=== PATIENT | female | born 1955 | race Asian ===

== ENCOUNTER 2018-08-02 03:53 | Outpatient (CLI) | payer OTHER, MEDICAID | END 2018-08-02 03:54 | disposition critical access hospital (66) | LOC: EMS 03:53 | PROVIDERS: ATTEND Surgery | DX: R07.9 Chest pain, unspecified (principal); R06.02 Shortness of breath; R11.0 Nausea; R68.83 Chills (without fever) ==

== ENCOUNTER 2018-08-02 04:11 | Emergency (ER) | payer OTHER, MEDICAID ==
--- NOTE | 2018-08-02 04:23 | ED Physician Documentation ---
PD HPI CHEST PAIN - Stated complaint Stated Complaint: CP,SOA - History obtained from History obtained from: Patient, EMS - History of Present Illness Timing - onset: How many hours ago (1) Timing - onset during: Rest (was in bed trying to sleep) Timing - details: Gradual onset Pain level now: 8 Quality: Pain Location: Left chest Radiation: Other (does not radiate) Improved by: Rest Worsened by: Inspiration, Other (coughing) Associated symptoms: No: Shortness of air, Diaphoresis Similar symptoms before: Other (recently diagnosed with pneumonia, treated with antibiotic (does not know which one, but completed 1 week course of QD antibiotic), and prednisone taper (still taking). She has continued to cough since the diagnosis but left chest pain is new and the chief complaint tonight) - Additional information Additional information: 101.8 temperature measured by medics [employer]. Patient and family were not aware of fevers at home. Review of Systems Constitutional: reports: Fever (per medic's measurement) Cardiac: reports: Chest pain / pressure. denies: Palpitations, Pedal edema, Calf pain Respiratory: reports: Cough. denies: Dyspnea, Hemoptysis, Wheezing GI: reports: Reviewed and negative Skin: denies: Rash Musculoskeletal: denies: Extremity swelling PD PAST MEDICAL HISTORY - Past Medical History Past Medical History: Yes Cardiovascular: Hypertension, High cholesterol Respiratory: Pneumonia Endocrine/Autoimmune: HyPOthyroidism - Present Medications Home Medications: Ambulatory Orders Medication Instructions Recorded Confirmed Atorvastatin [Lipitor] 40 mg PO QPM 08/02/18 Azithromycin [Zithromax] 250 mg PO DAILY #4 tablet 08/02/18 Benzonatate 200 mg PO TID PRN 08/02/18 Hydrocodone/Acetaminophen 0.5 - 1 each PO Q6HR PRN #14 tablet 08/02/18 [Hydrocodone-Acetamin 5-325 mg] Levothyroxine [Synthroid] 88 mcg PO QDAC 08/02/18 Lisinopril 5 mg PO DAILY 08/02/18 Prednisone 10 mg PO DAILY 08/02/18 hydroCHLOROthiazide 25 mg PO DAILY 08/02/18 [Hydrochlorothiazide] - Allergies Allergies/Adverse Reactions: Allergies Allergy/AdvReac Type Severity Reaction Status Date / Time Penicillins AdvReac Hives Verified 08/02/18 04:22 - Living Situation Living Situation: reports: With family Living Arrangement: reports: At home PD ED PE NORMAL - Vitals Vital signs reviewed: Yes - General General: Alert and oriented X 3, No acute distress, Well developed/nourished - Neck Neck: Supple, no meningeal sign - Cardiac Cardiac: RRR, No murmur - Respiratory Respiratory: No respiratory distress, Other (left mid/lower lung field rhonchi) - Abdomen Abdomen: Soft, Non tender - Back Back: No CVA TTP - Derm Derm: Normal color, Warm and dry, No rash - Extremities Extremities: No edema Results - Vitals Vitals: Vital Signs - 24 hr 08/02/18 08/02/18 08/02/18 04:13 04:48 06:19 Temperature 37.2 C Heart Rate 97 93 85 Respiratory 17 19 18 Rate Blood Pressure 126/72 131/74 H 96/64 O2 Saturation 98 97 98 08/02/18 06:28 Temperature 36.7 C Heart Rate Respiratory Rate Blood Pressure O2 Saturation Oxygen O2 Source Room air - EKG (time done) No standard instances Rate: Rate (enter#) (97) Rhythm: NSR, LAE, BOYD Grayling: Normal Intervals: Normal NM QRS: Normal Ischemia: Normal ST segments - Labs Labs: Laboratory Tests 08/02/18 08/02/18 08/02/18 04:15 04:15 04:15 WBC 15.8 H RBC 4.29 Hgb 13.8 Hct 41.7 MCV 97.1 MCH 32.1 H MCHC 33.1 RDW 13.4 Plt Count 167 MPV 7.2 L Neut # (Auto) 11.8 H Lymph # (Auto) 2.7 [place] # (Auto) 1.2 H Eos # (Auto) 0.0 Baso # (Auto) 0.1 Absolute Nucleated RBC 0.00 Nucleated RBC % 0.0 D-Dimer Sodium 133 L Potassium 3.3 L Chloride 97 L Carbon Dioxide 26 Anion Gap 10.0 BUN 21 H Creatinine 0.8 Estimated GFR (MDRD) 73 L Glucose 166 H Lactic Acid Calcium 8.4 L Total Bilirubin 0.5 AST 17 ALT 19 Alkaline Phosphatase 65 Total Creatine Kinase 40 CK-MB (CK-2) 2.0 Troponin I < 0.04 Total Protein 6.6 L Albumin 3.5 Globulin 3.1 Albumin/Globulin Ratio 1.1 Lipase 38 08/02/18 08/02/18 04:15 05:00 WBC RBC Hgb Hct MCV MCH MCHC RDW Plt Count MPV Neut # (Auto) Lymph # (Auto) [place] # (Auto) Eos # (Auto) Baso # (Auto) Absolute Nucleated RBC Nucleated RBC % D-Dimer 430.0 H Sodium Potassium Chloride Carbon Dioxide Anion Gap BUN Creatinine Estimated GFR (MDRD) Glucose Lactic Acid 1.0 Calcium Total Bilirubin AST ALT Alkaline Phosphatase Total Creatine Kinase CK-MB (CK-2) Troponin I Total Protein Albumin Globulin Albumin/Globulin Ratio Lipase - Rads (name of study) chest xray Radiology: Prelim report reviewed, See rad report PD MEDICAL DECISION MAKING - ED course Complexity details: reviewed results, re-evaluated patient, considered differential, d/w patient, d/w family Departure - Departure Disposition: 01 Home, Self Care Clinical Impression: Pneumonia Qualifiers: Pneumonia type: due to unspecified organism Laterality: left Lung location: lower lobe of lung Qualified Code(s): J18.1 - Lobar pneumonia, unspecified organism Condition: Good Instructions: ED Pneumonia Adult Prescriptions: Hydrocodone/Acetaminophen [Hydrocodone-Acetamin 5-325 mg] 0.5 - 1 each PO Q6HR PRN #14 tablet PRN Reason: Pain Azithromycin [Zithromax] 250 mg PO DAILY #4 tablet Comments: Follow up with your primary care provider in 2-3 days Discharge Date/Time: 08/02/18 06:28
[2018-08-02] MEDS ORDERED: KETOROLAC 30 MG/ML VIAL IVP STA (04:26)
[2018-08-02 04:44] LABS: ALBUMIN 3.5 g/dL (3.2-5.5); ALBUMIN/GLOBULIN RATIO 1.1 (1.0-2.2); BILIRUBIN,TOTAL 0.5 mg/dL (0.2-1.0); CALCIUM 8.4 mg/dL (8.5-10.3); CREATININE 0.8 mg/dL (0.4-1.0); TOTAL PROTEIN 6.6 g/dL (6.7-8.2)
[2018-08-02 04:50] LABS: TROPONIN I < 0.04 ng/mL (<0.49)
[2018-08-02 04:54] LABS: BASOPHILS # (AUTO) 0.1 10^3/uL (0.0-0.1); BASOPHILS % (AUTO) 0.3 %; EOSINOPHILS % (AUTO) 0.2 %; HGB - HEMOGLOBIN 13.8 g/dL (12.0-16.0); LYMPHOCYTES # (AUTO) 2.7 10^3/uL (1.5-3.5); LYMPHOCYTES % (AUTO) 17.1 %; MEAN CORPUSCULAR HEMOGLOBIN 32.1 pg (27.0-31.0); MEAN CORPUSCULAR HGB CONC 33.1 g/dL (32.0-36.0); MEAN CORPUSCULAR VOLUME 97.1 fL (81.0-99.0); MEAN PLATELET VOLUME 7.2 fL (7.9-10.8); MONOCYTES # (AUTO) 1.2 10^3/uL (0.0-1.0); MONOCYTES % (AUTO) 7.4 %; NEUTROPHILS # (AUTO) 11.8 10^3/uL (1.5-6.6); PLT - PLATELET COUNT 167 10^3/uL (130-450); RED BLOOD COUNT 4.29 10^6/uL (4.20-5.40); RED CELL DISTRIBUTION WIDTH 13.4 % (12.0-15.0); WHITE BLOOD COUNT 15.8 x10^3/uL (4.8-10.8)
--- NOTE | 2018-08-02 05:10 | XRAY Report ---
Reason: chest pain Procedure Date: 08/02/2018 Accession Number: [id number] / [id number] Procedure: XR - Chest 2 View X-Ray CPT Code: 75466 FULL RESULT: EXAM: CHEST RADIOGRAPHY EXAM DATE: 08/02/2018 04:49 AM. CLINICAL HISTORY: Left-sided lower chest pain, shortness of breath since 2 AM. COMPARISON: None. TECHNIQUE: 2 views. FINDINGS: Lungs/Pleura: Small lingular consolidation. No effusion or pneumothorax. Mediastinum: Normal heart size. Other: Curvilinear sclerotic lesions within the left proximal humerus, suggestive of small bone infarcts and/or enchondroma. Multilevel thoracic degenerative change. IMPRESSION: Small lingular consolidation related to pneumonia. Followup chest x-ray would be helpful at 4-6 weeks after appropriate treatment to assess for resolution. [facility]
[2018-08-02] MEDS ORDERED: AZITHROMYCIN 250 MG TABLET PO STA (05:57)
[2018-08-02] MEDS ORDERED: HYDROcod/ACET 5/325 Prepack 4 PO STA (05:58)
[2018-08-02 06:21] VITALS: BP 96/64
== END 2018-08-02 06:28 | disposition home or self-care (01) ==
LOC: EDUNIT# → ED 04:11
DX: J18.1 Lobar pneumonia, unspecified organism (principal); I10 Essential (primary) hypertension; Z88.0 Allergy status to penicillin
CPT/HCPCS: 36415; 71046; 80053; 82550; 82553; 83605; 83690; 84484; 85025; 85379; 93005; 99283; A9270

== ENCOUNTER 2020-02-04 13:48 | Outpatient (CLI) | payer OTHER, MEDICAID | END 2020-02-04 13:49 | disposition home or self-care (01) | LOC: COV 13:48 | PROVIDERS: ATTEND Family Medicine | DX: Z20.828 Contact with and (suspected) exposure to other viral communicable diseases (principal) ==